=== PATIENT | male | born 1945 | race Two or more races ===

== ENCOUNTER 2025-05-27 17:53 | Emergency (ER) | payer OTHER ==
[~2025-05-27] VITALS: Ht 177.8 cm; Wt 68.0 kg
[2025-05-27] MEDS ORDERED: COZAAR50 MG PO (18:19)
[2025-05-27] MEDS ORDERED: TOPROL XL50 M1 (18:19)
[2025-05-27] MEDS ORDERED: TAMSULOSIN HCL 0.4 MG CAP PO ONE ×2 (18:45→19:46)
[2025-05-27] MEDS ORDERED: 0.9 % SODIUM CHLORIDE 1,000 ML IV ONE (18:45)
[2025-05-27] MEDS ORDERED: FAMOTIDINE/PF 20 MG in 0.9 % SODIUM CHLORIDE 8 ML IV PUSH ONE (18:45)
[2025-05-27] MEDS ORDERED: ACETAMINOPHEN 500 MG GEL..CAP PO ONE ×2 (18:45→19:47)
[2025-05-27] MEDS ORDERED: ONDANSETRON HCL 4 MG in 0.9 % SODIUM CHLORIDE 50 ML IV ONE (18:45)
[2025-05-27] MEDS ORDERED: ONDANSETRON HCL 2 MG/ML VIAL ONE (19:47)
[2025-05-27] MEDS ORDERED: FAMOTIDINE/PF 20 MG/2 ML VIAL ONE (19:47)
[2025-05-27 20:34] LABS: BASO % 0.3 % (0.1-1.2); EOS # 0.03 (0.04-0.54); EOS % 0.0 % (0.7-7.0); LYMPH # 1.53 (1.18-3.74); LYMPH % 2.4 % (19.3-53.1); MEAN PLATELET VOLUME 10.40 fl (9.4-12.4); MONO # 1.52 (0.24-0.82); MONO % 2.4 % (4.7-12.5); NEUT # 57.60 (1.56-6.13); NEUT % 92.0 % (34.0-71.1); RED CELL DISTRIBUTION WIDTH 16.2 % (11.6-14.4)
[2025-05-27 21:00] LABS: INR 1.23
[2025-05-27 21:06] LABS: ALT/SGPT 12 U/L (12-78); AST/SGOT 32 U/L (15-37); BILIRUBIN TOTAL 1.25 mg/dL (0.3-1.2); BUN CREA RATIO 21 (7.0-25.0); CREATININE SERUM 1.06 mg/dL (0.70-1.30); GFR 67.22; GLOBULINA 3.6 G/DL (2.4-3.5); GLUCOSE FASTING 75 mg/dL (65-100); OSMOLALITY SERUM 272 MOSM/KG (275-295)
[2025-05-27 21:08] LABS: URINE APPEARANCE Cloudy; URINE BILIRRUBIN Small (NEGATIVE); URINE BLOOD Large; URINE COLOR Orange; URINE GLUCOSE Negative (NEGATIVE); URINE KETONE 15 (NEGATIVE); URINE LEUKOCYTE Small; URINE NITRATE Negative; URINE UROBILINOGEN 1.0 E.U./dl
[2025-05-27 21:13] LABS: URINE BACTERIA 3135.6 uL (0.0-1933); URINE EPITHELIAL CELLS 59.1 uL (0.0-38.8); URINE RBC 4579.0 uL (0.0-20.8); URINE WBC 385.9 uL (0.0-23.2)
[2025-05-27 21:13] LABS: BAND MAN 2.0 %; LYMPHOCYTE MAN 3.0 %; MONOCYTE MAN 2.0 %; NEUTROPHILS MAN 93.0 %
[2025-05-27 21:15] LABS: ERYTHROCYTE SEDIMENTATION RATE 78 mm/hr (0-20)
[2025-05-27] MEDS ORDERED: levoFLOXacin IN DEXTROSE 5 % 150 ML IV ONE (21:30)
[2025-05-27 22:17] LABS: URINE CAST 1.13 uL (0.0-1.40); URINE PROTEIN 300 (NEGATIVE)
[2025-05-27 22:18] LABS: URINE CRYSTALS FEW /HPF
[2025-05-27 22:20] LABS: TYPE CELLS SQUAMOUS; URINE MUCUS SCANT
[2025-05-28] MEDS ORDERED: ACETAMINOPHEN 500 MG GEL..CAP PO PRN (02:15)
[2025-05-28 07:41] LABS: BASO % 0.2 % (0.1-1.2); EOS # 0.08 (0.04-0.54); EOS % 0.1 % (0.7-7.0); LYMPH # 1.53 (1.18-3.74); LYMPH % 2.8 % (19.3-53.1); MEAN PLATELET VOLUME 11.80 fl (9.4-12.4); MONO # 1.34 (0.24-0.82); MONO % 2.5 % (4.7-12.5); NEUT # 49.26 (1.56-6.13); NEUT % 91.8 % (34.0-71.1); RED CELL DISTRIBUTION WIDTH 16.2 % (11.6-14.4)
[2025-05-28] MEDS ORDERED: FAMOTIDINE/PF 20 MG/2 ML VIAL ONE (07:41)
[2025-05-28] MEDS ORDERED: levoFLOXacin IN DEXTROSE 5 % 150 ML IV SCH (09:00)
[2025-05-28] MEDS ORDERED: FAMOTIDINE/PF 20 MG in 0.9 % SODIUM CHLORIDE 8 ML IV PUSH SCH (09:00)
[2025-05-28 14:42] VITALS: BP 124/67; O2SAT 99
== END 2025-05-28 14:43 | disposition designated cancer center or children's hospital (05) ==
LOC: ER 17:53
PROVIDERS: General Practice
DX: R31.0 Gross hematuria (principal); Z85.46 Personal history of malignant neoplasm of prostate
CPT/HCPCS: 36415; 74176; 96365; 96366; 99285; J1956; J2405; J3490; J7030